=== PATIENT | male | born 1990 | race Caucasian/White ===

== ENCOUNTER 2023-05-29 06:53 | Day surgery (SDC) | payer OTHER ==
[2023-05-29] MEDS: LACTATED RINGERS 1,000 ML IV SCH (07:39)
[2023-05-29 07:55] VITALS: RESP 16; TEMP 98.1
[2023-05-29] MEDS ORDERED: PROPOFOL 10 MG/ML 20 ML VIAL IV ONE (08:06)
--- NOTE | 2023-05-29 08:35 | P.PCN ---
Date of Procedure: 05/29/23 Procedure(s) Performed: Brief history: Patient is a pleasant 33-year-old white male scheduled for an elective upper endoscopy as well as colonoscopy as a part of evaluation of epigastric pain and change in bowel habits Procedure performed: Esophagogastroduodenoscopy with biopsy Colonoscopy Preoperative diagnosis: Chronic epigastric pain Change in bowel habits Anesthesia: MAC Procedure: After informed consent was obtained from the patient was brought into the endoscopy unit and IV sedation was administered by anesthesia under continuous monitoring. Initially upper endoscopy was done. The Olympus GF 160 video endoscope was inserted inserted into the mouth and esophagus intubated without any difficulty and was gradually advanced into the stomach and duodenum and carefully examined. The bulb and second part of the duodenum appeared normal.HIS were done from the duodenum to rule out celiac disease. The scope was then withdrawn into the stomach adequately insufflated with air and upon careful examination the antrum had mild patchy areas of erythema which was biopsied. Mucosa of the body, cardia and fundus appeared normal. The scope was then withdrawn into the esophagus. The GE junction was located at 40 cm to the incisors. Small hiatal hernia noted. It appeared regular with no erythema erosions or ulcerations. Rest of the esophagus appeared normal. Patient tolerated the procedure well. At this time the patient continued to remain sedation. Initial digital rectal examination was normal. Olympus CF 160 video colonoscope was then inserted into the rectum and gradually advanced to the cecum without any difficulty. Careful examination was performed as the scope was gradually being withdrawn. The prep was excellent. mid ileum was intubated and 20 cm visualized and appeared normal. The cecum, ascending colon, transverse colon, descending colon, sigmoid colon and rectum appeared normal. past with random biopsyrandom biopsy From ascending and descending colon to rule out microscopic/collagenous colitis. Retroflexion was performed in the rectum and no lesions were noted. Patient tolerated the procedure well. Impression: 1. Upper endoscopy revealed mild antral gastritis and small hiatal hernia 2. Colonoscopy was within normal limits with no evidence of colorectal neoplasia Recommendations: Findings of this examination were discussed with the patient as well ashis family. He was advised to follow up the biopsy results.follow-up in office in 2-3 weeks.
[2023-05-29 09:19] VITALS: BP 120/82; PULSE 61
== END 2023-05-29 09:18 | disposition home or self-care (01) ==
LOC: ORWHC2ENDO 06:53
PROVIDERS: ATTEND Internal Medicine Gastroenterology
DX: K29.50 Unspecified chronic gastritis without bleeding (principal); K44.9 Diaphragmatic hernia without obstruction or gangrene; K21.9 Gastro-esophageal reflux disease without esophagitis; R19.4 Change in bowel habit; G89.29 Other chronic pain; F32.A Depression, unspecified; F41.9 Anxiety disorder, unspecified; N30.90 Cystitis, unspecified without hematuria; Z79.899 Other long term (current) drug therapy
CPT/HCPCS: 88305; 45380; 43239; J2704

== ENCOUNTER 2024-08-07 02:47 | Inpatient (IN) | payer BC, MEDICAID ==
--- NOTE | 2024-08-07 03:49 | ED ---
Psych HPI - General Chief Complaint: Psychiatric Symptoms Stated Complaint: Anxiety, Mental health Time Seen by Provider: 08/07/24 03:40 Source: patient Mode of arrival: ambulatory - History of Present Illness Initial Comments: This patient is a 34-year-old man with history of OCD, who presents with complaints that he has had worsening of his symptoms. He is obsessing over thi ngs. This is led him to have difficulty relaxing and he has not slept now for 4 days. He is starting to have persistent suicidal ideation. MD Complaint: suicidal ideation, other -: month(s) Associated Psychiatric Symptoms: suicidal ideation, racing thoughts History of same: Yes Quality: getting worse Improves With: none Worsens With: none - Related Data Home Medications Medication Instructions Recorded Confirmed Cholecalciferol [Vitamin D3 (125 125 mcg PO DAILY 08/07/24 08/07/24 Mcg = 5000 Iu)] Melatonin 10 mg PO HS PRN 08/07/24 08/07/24 Multivitamins, Thera [Multivitamin 1 tab PO DAILY 08/07/24 08/07/24 (formulary)] [place]-3/Dha/Epa/Fish Oil [Fish Oil 1 cap PO DAILY 08/07/24 08/07/24 1,000 mg Softgel] Previous Rx's Medication Instructions Recorded Clotrimazole Cream [Lotrimin Cream] 1 applic TOPICAL BID each 08/12/24 QUEtiapine [SEROquel] 150 mg PO HS 30 Days #45 tab 08/12/24 Sennosides-Docusate Sodium 1 each PO BID 30 Days #60 tab 08/12/24 [Senokot-S] Terbinafine [LamISIL] 250 mg PO DAILY 7 Days #7 tab 08/12/24 bisacodyL [Dulcolax] 10 mg PO DAILY PRN 30 Days #30 tab 08/12/24 clomiPRAMINE [Anafranil] 25 mg PO DAILY 30 Days #30 cap 08/12/24 hydrOXYzine pamoate [Vistaril] 50 mg PO HS 30 Days #60 cap 08/12/24 polyethylene glycoL 3350 [Miralax] 17 gm PO DAILY 30 Days #30 packet 08/12/24 Allergies Allergy/AdvReac Type Severity Reaction Status Date / Time No Known Allergies Allergy Verified 08/07/24 11:51 Review of Systems ROS Statement: Those systems with pertinent positive or pertinent negative responses have been documented in the HPI. ROS Other: All systems not noted in ROS Statement are negative. Constitutional: Denies: fever, chills, weakness Eyes: Denies: vision change Respiratory: Denies: cough, dyspnea Cardiovascular: Denies: chest pain, palpitations Gastrointestinal: Reports: constipation. Denies: abdominal pain, nausea, vomiting, diarrhea Genitourinary: Denies: dysuria, hematuria Musculoskeletal: Denies: back pain Skin: Denies: rash Neurological: Denies: headache, weakness, numbness Psychiatric: Reports: suicidal thoughts Past Medical History Past Medical History: GERD/Reflux Additional Past Medical History / Comment(s): abdominal pain . discomfort p assing stools some blood ( bright red). feelings of heart racing when standing up, ramps up throughout the day. will see ice cream chef 05/27/22. back pain. hx back injuries. History of Any Multi-Drug Resistant Organisms: None Reported Additional Past Surgical History / Comment(s): cystitis. Past Anesthesia/Blood Transfusion Reactions: No Reported Reaction Past Psychological History: Anxiety, Depression Smoking Status: Never smoker - Past Family History Mother Family Medical History: Cancer Additional Family Medical History / Comment(s): breast cancer General Exam General appearance: alert, in no apparent distress Head exam: Present: atraumatic, normocephalic Eye exam: Present: normal appearance. Absent: scleral icterus, conjunctival injection Neck exam: Present: normal inspection Respiratory exam: Present: normal lung sounds bilaterally. Absent: respiratory distress, wheezes, rales, rhonchi, stridor, accessory muscle use Cardiovascular Exam: Present: regular rate, normal rhythm, normal heart sounds. Absent: systolic murmur, diastolic murmur, rubs, gallop GI/Abdominal exam: Present: soft. Absent: distended, tenderness, guarding Extremities exam: Present: normal inspection, normal capillary refill Back exam: Present: normal inspection Neurological exam: Present: alert Psychiatric exam: Present: suicidal ideation. Absent: agitated, anxious, flat affect, homicidal ideation Skin exam: Present: warm, dry, intact, normal color. Absent: rash Course Vital Signs 08/07/24 08/07/24 02:50 11:15 Temperature 98.1 F Pulse Rate 74 72 Respiratory 18 20 Rate Blood Pressure 141/83 134/87 O2 Sat by Pulse 100 97 Oximetry Medical Decision Making - Medical Decision Making Was pt. sent in by a medical professional or institution ([facility]JA Sullivan, HAND TACKER, urgent care, hospital, or penitentiary...) When possible be specific @ -[No] Did you speak to anyone other than the patient for history (EMS, parent, family, police, friend...)? What history was obtained from this source @ -[No] Did you review nursing and triage notes (agree or disagree)? Why? @ -[I reviewed and agree with nursing and triage notes] Were old charts reviewed (outside hosp., previous admission, EMS record, old EKG, old radiological studies, urgent care reports/EKG's, penitentiary records)? Report findings @ -[No old charts were reviewed] Differential Diagnosis (chest pain, altered mental status, abdominal pain women, abdominal pain men, vaginal bleeding, weakness, fever, dyspnea, syncope, headache, dizziness, GI bleed, back pain, seizure, CVA, palpatations, mental health, musculoskeletal)? @ -[Differential Mental Health Depression, anxiety, bipolar, psychosis, schizophrenia, borderline personality, situational depression, adjustment disorder, behavioral disorder, brain tumor, malingering, substance abuse, encephalopathy, medication reaction, dementia, hypothyroidism, degenerative neurologic disorder, lupus.... This is not meant to be all-inclusive list EKG interpreted by me (3pts min.). @ -[As above] X-rays interpreted by me (1pt min.). @ -[None done] CT interpreted by me (1pt min.). @ -[None done] U/S interpreted by me (1pt. min.). @ -[None done] What testing was considered but not performed or refused? (CT, X-rays, U/S, labs)? Why? @ -[None] What meds were considered but not given or refused? Why? @ -[None] Did you discuss the management of the patient with other professionals (professionals i.e. PUJA Sullivan, HAND TACKER, lab, RT, psych nurse, social work nurse, earth science technician, teacher, detention officer, manager of case management)? Give summary @ -[Case discussed with EPS personnel Was smoking cessation discussed for >3mins.? @ -[No] Was critical care preformed (if so, how long)? @ -[No] Were there social determinants of health that impacted care today? How? (Homelessness, low income, unemployed, alcoholism, drug addiction, transportation, low edu. Level, literacy, decrease access to med. care, [facility], rehab)? @ -[No] Was there de-escalation of care discussed even if they declined (Discuss DNR or withdrawal of care, Hospice)? DNR status @ -[No] What co-morbidities impacted this encounter? (DM, HTN, Smoking, COPD, CAD, Cancer, CVA, ARF, Chemo, Hep., AIDS, mental health diagnosis, sleep apnea, morbid obesity)? @ -[None] Was patient admitted / discharged? Hospital course, mention meds given and route, prescriptions, significant lab abnormalities, going to OR and other pertinent info. @ -[hospital course] Undiagnosed new problem with uncertain prognosis? @ -[No] Drug Therapy requiring intensive monitoring for toxicity (Heparin, Nitro, Insulin, Cardizem)? @ -[No] Were any procedures done? @ -[No] Diagnosis/symptom? @ -[Acute suicidal ideation Mood disorder Acute, or Chronic, or Acute on Chronic? @ -[Acute Uncomplicated (without systemic symptoms) or Complicated (systemic symptoms)? @ -[Uncomplicated Side effects of treatment? @ -[No] Exacerbation, Progression, or Severe Exacerbation? @ -[No] Poses a threat to life or bodily function? How? (Chest pain, [place], PR, pneumonia, PE, COPD, DKA, ARF, appy, cholecystitis, CVA, Diverticulitis, Homicidal, Suicidal, threat to staff... and all critical care pts) @ -[Yes there is risk of suicide attempt/completion All treatments are based on ideal body weight as in ED triage - Lab Data Result diagrams: 08/08/24 06:59 08/08/24 06:59 Lab Results 08/07/24 Range/Units 06:10 SARS-CoV-2 (PCR) Not Detected (Not Detectd) Disposition Clinical Impression: Mood disorder, Suicidal ideation Disposition: TRANSFER TO PSYCH HOSP/UNIT Condition: Stable Is patient prescribed a controlled substance at d/c from ED?: No
[2024-08-07] MEDS ORDERED: MAG HYDROX/AL HYDROX/SIMETH 355 ML BOTTLE PO PRN (09:25)
[2024-08-07] MEDS ORDERED: IBUPROFEN 600 MG TAB PO PRN (09:25)
[2024-08-07] MEDS ORDERED: ACETAMINOPHEN TAB 325 MG TAB PO PRN (09:25)
[2024-08-07] MEDS: NICOTINE 14MG/24HR PATCH TRANSDERM SCH (12:23)
--- NOTE | 2024-08-07 15:28 | P.MDCNMH ---
History of Present Illness H&P Date: 08/07/24 Chief Complaint: Medical management 34-year-old man with no past medical history presented for evaluation of mental health. Medicine was consulted for medical management. Patient's only complaint at this time is ringworm for which he was taking antifungals intermittently prior to arrival. Otherwise his review of systems is largely negative. Gen: in no apparent distress, resting comfortably in bed Eyes: PERRL, no scleral injection or icterus HENT: normocephalic, atraumatic, good hearing acuity, moist mucous membranes Neck: no tracheal deviation, full range of motion Resp: good air exchange, breathing comfortably with no accessory muscle use, no tactile fremitus CVS: good distal perfusion x 4, no pitting edema GI: soft, NTTP, ND, no hepatosplenomegaly : no suprapubic tenderness, no CVAT, renner catheter not present MSK: no clubbing, no cyanosis, no noted contractures of extremities Skin: no noted rashes, petechiae; temperature of skin is appropriate Neuro: moving all extremities without signs of weakness, CN II-XII intact Psych: cooperative, euthymic mood, insight and judgment intact Assessment/plan: Tinea corporis - Initiate clotrimazole cream 2 times a day for 2 weeks, patient may apply on his own Thank you for this consult. Please feel free to reach out with any questions or concerns Past Medical History Past Medical History: GERD/Reflux Additional Past Medical History / Comment(s): abdominal pain . discomfort passing stools some blood ( bright red). feelings of heart racing when standing up, ramps up throughout the day. will see anvilsmith 05/27/22. back pain. hx back injuries. History of Any Multi-Drug Resistant Organisms: None Reported Additional Past Surgical History / Comment(s): cystitis. Past Anesthesia/Blood Transfusion Reactions: No Reported Reaction Past Psychological History: Anxiety, Depression Additional Psychological History / Comment(s): no meds Smoking Status: Never smoker Past Alcohol Use History: None Reported Past Drug Use History: None Reported - Past Family History Mother Family Medical History: Cancer Additional Family Medical History / Comment(s): breast cancer Medications and Allergies Home Medications Medication Instructions Recorded Confirmed Type Cholecalciferol [Vitamin D3 (125 125 mcg PO DAILY 08/07/24 08/07/24 History Mcg = 5000 Iu)] Melatonin 10 mg PO HS PRN 08/07/24 08/07/24 History Multivitamins, Thera [Multivitamin 1 tab PO DAILY 08/07/24 08/07/24 History (formulary)] [place]-3/Dha/Epa/Fish Oil [Fish Oil 1 cap PO DAILY 08/07/24 08/07/24 History 1,000 mg Softgel] Allergies Allergy/AdvReac Type Severity Reaction Status Date / Time No Known Allergies Allergy Verified 08/07/24 11:51 Physical Exam Osteopathic Statement: *. No significant issues noted on an osteopathic structural exam other than those noted in the History and Physical/Consult. Vitals: Vital Signs Temp Pulse Pulse Resp BP BP Pulse Ox 08/07/24 11:45 98.2 F 71 18 117/68 97 08/07/24 11:15 72 20 134/87 97 08/07/24 02:50 98.1 F 74 18 141/83 100 Intake and Output 08/07/24 08/07/24 08/07/24 06:59 14:59 22:59 Other: Weight 81.647 kg 79.379 kg Cranial Nerve Examination - Cranial Nerves Cranial Nerve II- Optic: Intact Cranial Nerve III- Oculomotor: Intact Cranial Nerve IV- Trochlear: Intact Cranial Nerve V- Trigeminal: Intact Cranial Nerve - Abducens: Intact Cranial Nerve VII- Facial: Intact Cranial Nerve VIII- Auditory: Intact Cranial Nerve IX- Glossopharyngeal: Intact Cranial Nerve X- Vagus: Intact Cranial Nerve XI- Accessory: Intact Cranial Nerve XII- Hypoglossal: Intact
[2024-08-07] MEDS: OLANZapine ODT 5 MG TAB PO PRN (17:22)
[2024-08-07] MEDS: CLOTRIMAZOLE 1% CREAM 30 GM TUBE TOPICAL SCH (22:43)
[2024-08-08] MEDS ORDERED: MELATONIN 5 MG TABLET PO PRN (07:13)
[2024-08-08 07:22] LABS: Basophils # (A) 0.06 10*3/uL (0.00-0.10); Eosinophils % (A) 1.6 %; HCT 46.9 % (39.6-50.0); HGB 15.8 g/dL (13.0-17.0); Lymphocytes % (A) 24.1 %; MCHC 33.7 g/dL (32.0-37.0); MCV 97.9 fL (80.0-97.0); Mean Platelet Volume 11.4 fL (9.5-12.2); Monocytes # (A) 0.86 10*3/uL (0.20-1.00); Monocytes % (A) 13.8 %; Neutrophils # (A) 3.69 10*3/uL (1.80-7.70); Neutrophils % (A) 59.3 %; Platelet Count 275 10*3/uL (140-440); RBC 4.79 10*6/uL (4.40-5.60); RDW 13.6 % (11.5-14.5); WBC 6.22 10*3/uL (4.50-10.00)
[2024-08-08 07:36] LABS: ALT 16 U/L (4-49); AST 22 U/L (17-59); African American GFR (CKD) >90 (>60 ml/min/1.73 sqM); Albumin 4.3 g/dL (3.5-5.0); Alkaline Phosphatase 62 U/L (38-126); Anion Gap 9 mmol/L; Bilirubin, Delta 0.2 mg/dL (0.0-0.2); Bilirubin,Unconjugated 1.2 mg/dL (0.0-1.1); Blood Urea Nitrogen 11 mg/dL (9-20); Calcium 9.5 mg/dL (8.4-10.2); Carbon Dioxide 27 mmol/L (22-30); Chloride 103 mmol/L (98-107); Glucose 90 mg/dL (74-99); Non-African American GFR(CKD) 89 (>60 ml/min/1.73 sqM); Potassium 4.6 mmol/L (3.5-5.1); Sodium 139 mmol/L (137-145); Total Bilirubin 1.4 mg/dL (0.2-1.3); Total Protein 7.5 g/dL (6.3-8.2)
--- NOTE | 2024-08-08 08:12 | P.HP ---
Psychiatric H&P - . H&P Date: 08/08/24 History & Physical: Allergies Allergy/AdvReac Type Severity Reaction Status Date / Time No Known Allergies Allergy Verified 08/07/24 11:51 Vital Signs Temp 98.2 F 08/07/24 11:45 Pulse 71 08/07/24 11:45 Resp 18 08/07/24 11:45 BP 117/68 08/07/24 11:45 Pulse Ox 97 08/07/24 11:45 FiO2 Intake & Output 08/07/24 08/08/24 08/08/24 18:59 06:59 18:59 Weight 79.379 kg Laboratory Last Values WBC 6.22 10*3/uL (4.50-10.00) 08/08/24 06:59 RBC 4.79 10*6/uL (4.40-5.60) 08/08/24 06:59 Hgb 15.8 g/dL (13.0-17.0) 08/08/24 06:59 Hct 46.9 % (39.6-50.0) 08/08/24 06:59 MCV 97.9 fL (80.0-97.0) H 08/08/24 06:59 MCH 33.0 pg (27.0-32.0) H 08/08/24 06:59 MCHC 33.7 g/dL (32.0-37.0) 08/08/24 06:59 Plt Count 275 10*3/uL (140-440) 08/08/24 06:59 MPV 11.4 fL (9.5-12.2) 08/08/24 06:59 Immature Gran % (Auto) 0.2 % 08/08/24 06:59 Neutrophils % 59.3 % 08/08/24 06:59 Lymphocytes % 24.1 % 08/08/24 06:59 Monocytes % 13.8 % 08/08/24 06:59 Eosinophils % 1.6 % 08/08/24 06:59 Basophils % 1.0 % 08/08/24 06:59 Immature Gran # 0.01 10*3/uL (0.00-0.04) 08/08/24 06:59 Neutrophils # 3.69 10*3/uL (1.80-7.70) 08/08/24 06:59 Lymphocytes # 1.50 10*3/uL (0.90-5.00) 08/08/24 06:59 Monocytes # 0.86 10*3/uL (0.20-1.00) 08/08/24 06:59 Eosinophils # 0.10 10*3/uL (0.04-0.35) 08/08/24 06:59 Basophils # 0.06 10*3/uL (0.00-0.10) 08/08/24 06:59 Sodium 139 mmol/L (137-145) 08/08/24 06:59 Potassium 4.6 mmol/L (3.5-5.1) 08/08/24 06:59 Chloride 103 mmol/L (98-107) 08/08/24 06:59 Carbon Dioxide 27 mmol/L (22-30) 08/08/24 06:59 Anion Gap 9 mmol/L 08/08/24 06:59 BUN 11 mg/dL (9-20) 08/08/24 06:59 Creatinine 1.08 mg/dL (0.66-1.25) 08/08/24 06:59 Est GFR (CKD-EPI)AfAm >90 (>60 ml/min/1.73 sqM) 08/08/24 06:59 Est GFR (CKD-EPI)NonAf 89 (>60 ml/min/1.73 sqM) 08/08/24 06:59 Glucose 90 mg/dL (74-99) 08/08/24 06:59 Calcium 9.5 mg/dL (8.4-10.2) 08/08/24 06:59 Total Bilirubin 1.4 mg/dL (0.2-1.3) H 08/08/24 06:59 Conjugated Bilirubin 0.0 mg/dL (0.0-0.3) 08/08/24 06:59 Unconjugated Bilirubin 1.2 mg/dL (0.0-1.1) H 08/08/24 06:59 Delta Bilirubin 0.2 mg/dL (0.0-0.2) 08/08/24 06:59 AST 22 U/L (17-59) 08/08/24 06:59 ALT 16 U/L (4-49) 08/08/24 06:59 Alkaline Phosphatase 62 U/L (38-126) 08/08/24 06:59 Total Protein 7.5 g/dL (6.3-8.2) 08/08/24 06:59 Albumin 4.3 g/dL (3.5-5.0) 08/08/24 06:59 SARS-CoV-2 (PCR) Not Detected (Not Detectd) 08/07/24 06:10 08/08/24 07:55 IDENTIFYING DATA: Patient is a 34-year-old male currently single trading and crypto living with his mother and father HPI: The patient presented to the hospital with his father yesterday due to intense suicidal thoughts. The patient notes that he had not been sleeping for 4 days and decided to take a THC gummy from a friend. This intensified his suicidal thoughts that he was already having to the point that he was having urges but no plan. He reached out to his father who brought him to the hospital. Upon admission patient does have ringworm at this time. The patient has a past history of OCD, SAD, Depression and Anxiety. He notes that his OCD started when he was a kid with compulsions. He notes currently he has intrusive thoughts that make him feel like he has to understand anything he reads and he will ruminate on it for hours until he has a "Ah moment". He notes that this has caused other problems including fear of being judged where he socially isolates himself and basically hardly leaves the house. He notes that he chronically worries about things which overtake his life. He notes that his sleep is one of the things that he worries about since childhood he used to hold his breath in order to try to go to sleep. He currently rates his depression 6/10 and his anxiety 10/10 with 10 being worst. He notes on average she sleeps 4 hours at night. He notes that he has nervous anxious energy. He notes that he has problems with constipation and this affects his appetite. He notes that he struggles with concentration. He feels worthless but denies any bouts of crying. He notes feelings of guilt and shame. He denies any current suicidal thoughts or homicidal thoughts. He denies any access to firearms. Collateral: The patient gave me permission to speak to his father Jaswant [phone] however there was no answer when trying to reach out to him. Psychiatric review of systems: Bipolar-negative PTSD-negative Psychosis-negative Stressors: Social isolation, Lack of intimate relationship PAST PSYCHIATRIC HISTORY: The patient has a history of OCD, Social anxiety disorder, Depression, Anxiety. The patient currently is not on any psychotropic medications. The past the patient has been on Celexa, Zoloft, Luvox, BuSpar, Cymbalta, Seroquel, Lamictal, Adderall, and Xanax. The patient notes that this is his second hospitalization. The patient currently does not follow-up with an outpatient provider but in the past has seen a therapist. The patient denies any prior history of suicide attempts. The patient denies any physical, verbal or sexual abuse growing up. He notes a history of being in penitentiary for 2 weeks for shoplifting and larceny. He denies any history of violence. PMH: Chronic back pain Ringworm ALLERGIES: No known drug allergies CHEMICAL DEPENDENCY HISTORY: Caffeine-excessive Alcohol-occasionally 1-2 drinks per month Cannabis-rarely Stimulants-history of overuse FAMILY PSYCHIATRIC/SUBSTANCE USE HISTORY: The patient notes that his maternal aunt suffers from anxiety SOCIAL HISTORY: The patient was born and raised in [place] and notes that his childhood was "okay". 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 He is currently trading [employer]. Notes that he was in a long-term relationship for over 10 years. He currently lives with his mother and father. He denies any orthodoxy or spiritual beliefs. He denies any service. MENTAL STATUS EXAM: General Appearance: Patient appears to be his stated age is alert, directable, and attempts to cooperate. Patient appears to have good hygiene and grooming. Behavior: Patient is seated without any agitated behavior. Patient presented somewhat restless at times but was cooperative and engaged in the interview Speech: Patient's speech is fluent and nonpressured. Mood/Affect: Patient reports their mood is extreme anxiety, affect is congruent and constricted. Suicidality/Homicidality: Patient denies having any homicidal ideation intent or plan. Denies any suicidal ideations intent or plan Perceptions: Patient denies any visual hallucinations and denies any auditory hallucinations Though content/process: There is no evidence of any delusional thought content and thought process is linear and goal-directed. Memory and concentration: AOX3, grossly intact for the purposes of this session. Can spell "WORLD" backwards Judgment and insight: Poor STRENGTHS/WEAKNESSES: strength is that patient is resilient. Weakness is that patient has poor judgment and is impulsive INTELLECT: Above average Diagnosis: Obsessive-compulsive disorder Major depressive disorder recurrent moderate Generalized anxiety disorder Social anxiety disorder Assessment: 34-year-old male presenting with intense suicidal thoughts after taking a THC gummy. The patient has a history of periodic suicidal thoughts. Additionally, patient has a history of OCD and crippling social anxiety disorder. The patient has restricted himself to the house for the last 2 years. The patient also has ALFONSO and major depressive disorder. His biggest fear is his sleep and states that this has been going on for years. Most recently he went 4 days with hardly any sleep because of worrying about sleep. The patient is open to medications and receiving treatment at this time. This is the least restrictive level of care at this time. PLAN: -Patient is admitted under voluntary status to [facility] for stabilization of psychiatric symptoms and safety. Patient has signed adult voluntary form and medication consent and is placed in patient's chart. -Medications : Start Anafranil 25 mg take 1 tablet by mouth once daily for OCD/anxiety/depression. The patient has been explained the risk and benefits of the medication. There will be a taper prior to discharge hopefully the patient will be on 75 mg. Seroquel 25 mg take 1 tablet by mouth at bedtime for insomnia -Ativan and Zyprexa PRN for agitation/aggression -Patient was informed of the risks, benefits and side effects of the medication and patient verbally consented to taking the medications. Patient signed med consent form and was placed in chart. -Internal Medicine consult to perform medical evaluation and physical. -NRT -not needed as patient does not smoke -SW on board for discharge planning. Encourage patient to participate in groups to work on coping skills.
[2024-08-08] MEDS: CHOLECALCIFEROL 125 MCG (5000 IU) TABLET PO SCH (08:33)
[2024-08-08] MEDS: MULTIVITAMINS, THERA 1 EACH TAB PO SCH (08:33)
[2024-08-08] MEDS ORDERED: NON FORMULARY DRUG (Omega-3/Dha/Epa/Fish Oil [Fish Oil 1,000 Mg Softgel] 1 EACH Capsule) PO SCH (09:00)
[2024-08-08 10:26] LABS: Chol/HDL Ratio 3.45 Ratio; LDL Cholesterol,Calculated 99.9 mg/dL (0.0-131.0); VLDL Calculation 16.56 mg/dL (5.00-40.00)
[2024-08-08] MEDS: MAGNESIUM HYDROXIDE 2,400 MG/30 ML CUP PO PRN (14:08)
[2024-08-08] MEDS: QUEtiapine 25 MG TAB PO SCH (20:03)
[2024-08-09] MEDS: SENNOSIDES-DOCUSATE SODIUM 1 EACH TAB PO SCH (09:10)
--- NOTE | 2024-08-09 09:15 | P.PN ---
Progress Note - Text Progress Note Date: 08/09/24 Interval history: Patient was seen today for psychiatric follow-up. Patient was wandering the h allways [place] to speak to real estate underwriter's office. States that he is doing a bit better compared to yesterday. Claims that he does suffer from OCD and claims that he has persistent ruminating thoughts. Claims that he feels that they have been improving since he has been taking the clomipramine. Claims that he slept about 5 hours last night, we spoke about increasing the Seroquel which he is okay with. Farm Supervisor gave him medication information for clomipramine today as requested. Will check EKG. Claims that he is going to some groups, was brought to shower, has been eating well. Denies any auditory or visual hallucinations denies any suicidal or homicidal ideations intent or plan MENTAL STATUS EXAM: General Appearance: Patient appears to be his stated age is alert, directable, and attempts to cooperate. Patient appears to have good hygiene and grooming. Behavior: Patient is seated without any agitated behavior. Less restless today. Mildly anxious Speech: Patient's speech is fluent and nonpressured. Mood/Affect: Patient reports their mood is anxiety, affect is congruent and constricted. Improving mildly Suicidality/Homicidality: Patient denies having any homicidal ideation intent or plan. Denies any suicidal ideations intent or plan Perceptions: Patient denies any visual hallucinations and denies any auditory hallucinations Though content/process: There is no evidence of any delusional thought content and thought process is linear and goal-directed. Memory and concentration: AOX3, grossly intact for the purposes of this session Judgment and insight: improving mildly Diagnosis: Major depressive disorder Obsessive-compulsive disorder Generalized anxiety disorder Social anxiety disorder PLAN: -Patient is admitted under voluntary status to [facility]HU for stabilization of psy chiatric symptoms and safety. Patient has signed adult voluntary form and medication consent and is placed in patient's chart. -Medications : Start Anafranil 25 mg take 1 tablet by mouth once daily for OCD/anxiety/depression. consider increasing as tolerated/needed. check ekg today. increase Seroquel 50 mg at bedtime for insomnia/anxiety/ruminating thoughts. -Ativan and Zyprexa PRN for agitation/aggression -NRT -not needed as patient does not smoke -SW on board for discharge planning. Encourage patient to participate in groups to work on coping skills. likely discharge in 2-3 days if patient is improving psychiatrically
[2024-08-09] MEDS: polyethylene glycoL 3350 17 GM POWD.PACK PO SCH (14:41)
[2024-08-09] MEDS: QUEtiapine 50 MG TAB PO SCH (20:03)
[2024-08-09 20:31] LABS: Appearance,Urine Clear (Clear); Bilirubin,Urine Negative (Negative); Blood,Urine Negative (Negative); Color,Urine Colorless; Glucose,Urine (UA) Negative (Negative); Ketones,Urine Trace (Negative); Leukocyte Esterase,Urine Negative (Negative); Nitrite,Urine Negative (Negative); PH, Urine 5.5 (5.0-8.0); Protein,Urine Negative (Negative); Specific Gravity,Urine 1.012 (1.001-1.035); Urobilinogen,Urine <2.0 mg/dL (<2.0)
[2024-08-10 02:03] LABS: Urine Alcohol Negative (Negative); Urine Barbiturate Negative (Negative); Urine Cocaine Negative (Negative); Urine Methadone Negative (Negative); Urine Opiates Negative (Negative); Urine Phencyclidine Negative (Negative)
--- NOTE | 2024-08-10 10:22 | P.PN ---
Progress Note - Text Progress Note Date: 08/10/24 Interval history: Patient was seen today for psychiatric follow-up. Patient was wandering the h allways earlier today. He has been going to groups. He claims that he is doing a bit better today overall. Claims that he has "ringworm" lesions over his skin and showed sql report writer several circular and red well-circumscribed rash over his torso. Claims that he feels that his OCD symptoms have been improving since yesterday, claims that he did not sleep well last night about 2 or 3 hours. We spoke about adding Vistaril as well as a Seroquel dose as needed for sleep. Reviewed his EKG. He states that he has been eating well. Denies any auditory or visual hallucinations denies any suicidal or homicidal ideations intent or plan MENTAL STATUS EXAM: General Appearance: Patient appears to be his stated age is alert, directable, and attempts to cooperate. Patient appears to have good hygiene and grooming. Behavior: Patient is seated without any agitated behavior. Less restless today. Mildly anxious, improving mildly Speech: Patient's speech is fluent and nonpressured. Mood/Affect: Patient reports their mood is anxiety, affect is congruent and constricted. Improving mildly Suicidality/Homicidality: Patient denies having any homicidal ideation intent or plan. Denies any suicidal ideations intent or plan Perceptions: Patient denies any visual hallucinations and denies any auditory hallucinations Though content/process: There is no evidence of any delusional thought content and thought process is linear and goal-directed. Memory and concentration: AOX3, grossly intact for the purposes of this session Judgment and insight: improving mildly Diagnosis: Major depressive disorder Obsessive-compulsive disorder Generalized anxiety disorder Social anxiety disorder PLAN: -Patient is admitted under voluntary status to [facility]HU for stabilization of psychiatric symptoms and safety. Patient has signed adult voluntary form and medication consent and is placed in patient's chart. -Medications : Start Anafranil 25 mg take 1 tablet by mouth once daily for OCD/anxiety/depression. consider increasing as tolerated/needed. Seroquel 50 mg at bedtime for insomnia/anxiety/ruminating thoughts. added 50 mg qhs prn dose for insomnia. added vistaril 50 mg qhs for anxiety/sleep. -will contact medical for recommendations on rash. -Ativan and Zyprexa PRN for agitation/aggression -NRT -not needed as patient does not smoke -SW on board for discharge planning. Encourage patient to participate in groups to work on coping skills. likely discharge thursday if patient is improving psychiatrically
[2024-08-10] MEDS ORDERED: TERBINAFINE 250 MG TAB PO SCH (13:45)
[2024-08-10] MEDS: TERBINAFINE 250 MG TAB PO SCH (13:51)
[2024-08-10] MEDS: NA PHOS,M-B/NA PHOS,DI-BA 133 ML ENEMA RECTAL ONE (15:26)
[2024-08-10] MEDS: hydrOXYzine pamoate 25 MG CAP PO SCH (20:54)
[2024-08-11] MEDS: QUEtiapine 50 MG TAB PO PRN (01:43)
--- NOTE | 2024-08-11 10:52 | P.PN ---
Progress Note - Text Progress Note Date: 08/11/24 Interval history: Patient was seen today for psychiatric follow-up. Patient was wandering the h allways earlier today. Patient did not go to group this morning. Claims that he is doing a bit better today, claims that his anxiety and mood have been improving. States that he believes the Seroquel has been helping he needs to take an extra dose at nighttime last night. Claims that he was able to sleep throughout the whole night after taking the last dose he was agreeable to go on the 100 mg dose tonight. States that he is still having difficulties with his bowel movements, I was agreeable to try bisacodyl today. Claims that he is eating well. Denies any auditory or visual hallucinations denies any suicidal or homicidal ideations intent or plan MENTAL STATUS EXAM: General Appearance: Patient appears to be his stated age is alert, directable, and attempts to cooperate. Patient appears to have good hygiene and grooming. Behavior: Patient is seated without any agitated behavior, improving mildly yeah I have not seen him yet and yet Uri. So far for discharge, I do not Cefol not yet Speech: Patient's speech is fluent and nonpressured. Mood/Affect: Patient reports their mood is anxiety, affect is congruent and constricted. Improving mildly Suicidality/Homicidality: Patient denies having any homicidal ideation intent or plan. Denies any suicidal ideations intent or plan Perceptions: Patient denies any visual hallucinations and denies any auditory hallucinations Though content/process: There is no evidence of any delusional thought content and thought process is linear and goal-directed. Memory and concentration: AOX3, grossly intact for the purposes of this session Judgment and insight: improving mildly Diagnosis: Major depressive disorder Obsessive-compulsive disorder Generalized anxiety disorder Social anxiety disorder PLAN: -Patient is admitted under voluntary status to [facility]HU for stabilization of psychiatric symptoms and safety. Patient has signed adult voluntary form and medication consent and is placed in patient's chart. -Medications : Start Anafranil 25 mg take 1 tablet by mouth once daily for OCD/anxiety/depre low increase Seroquel 100 mg at bedtime for insomnia/anxiety/ruminating thoughts. continue with 50 mg qhs prn dose for insomnia. vistaril 50 mg qhs for anxiety/sleep. -Ativan and Zyprexa PRN for agitation/aggression -NRT -not needed as patient does not smoke -SW on board for discharge planning. Encourage patient to participate in groups to work on coping skills. likely discharge tomorrow if patient is improving psychiatrically
[2024-08-11] MEDS: bisacodyL 5 MG TABLET.DR PO PRN (12:03)
[2024-08-11 14:41] LABS: HIV 2 AB Non-Reactive (Non-Reactive); HIV AB P24 Non-Reactive (Non-Reactive); HIV P24 AG Non-Reactive (Non-Reactive)
[2024-08-11] MEDS: QUEtiapine 100 MG TAB PO SCH (20:41)
[2024-08-11 22:08] VITALS: RESP 16
[2024-08-12 10:01] VITALS: BP 122/76; PULSE 100; TEMP 97.6
--- NOTE | 2024-08-12 10:57 | P.DS ---
Providers Date of admission: 08/07/24 09:02 Expected date of discharge: 08/12/24 Attending physician: Berlin Sneed MD Consults: 08/07/24 09:25 Consult Physician Routine Consulting Provider: Jeffery Physician Consult Reason/Comments: H & p w/medical management Do you want consulting provider notified?: Yes Primary care physician: Stated None - Discharge Diagnosis(es) (1) Major depressive disorder Current Visit: Yes Status: Acute Priority: High (2) Obsessive compulsive disorder Current Visit: Yes Status: Acute Priority: High (3) Generalized anxiety disorder Current Visit: Yes Status: Acute Priority: Medium Hospital Course: Admission HPI: Admission note was completed by Dr Heller "patient is a 34-year-old male currently single trading and crypto living with his mother and father. The patient presented to the hospital with his father yesterday due to intense suic idal thoughts. The patient notes that he had not been sleeping for 4 days and decided to take a THC gummy from a friend. This intensified his suicidal thoughts that he was already having to the point that he was having urges but no plan. He reached out to his father who brought him to the hospital. Upon admission patient does have ringworm at this time. The patient has a past history of OCD, SAD, Depression and Anxiety. He notes that his OCD started when he was a kid with compulsions. He notes currently he has intrusive thoughts that make him feel like he has to understand anything he reads and he will ruminate on it for hours until he has a "Ah moment". He notes that this has caused other problems including fear of being judged where he socially isolates himself and basically hardly leaves the house. He notes that he chronically worries about things which overtake his life. He notes that his sleep is one of the things that he worries about since childhood he used to hold his breath in order to try to go to sleep. He currently rates his depression 6/10 and his anxiety 10/10 with 10 being worst. He notes on average she sleeps 4 hours at night. He notes that he has nervous anxious energy. He notes that he has problems with constipation and this affects his appetite. He notes that he struggles with concentration. He feels worthless but denies any bouts of crying. He notes feelings of guilt and shame. He denies any current suicidal thoughts or homicidal thoughts. He denies any access to firearms." Hospital course: Upon admission to the unit patient was directable and agreeable to commence treatment and signed adult voluntary form. Patient was initially anxious, depressed however with time and treatment patient got along well with other patients on the unit and followed unit protocol. Patient was compliant with the medications and denied any side effects throughout hospital course. Patient was started on Anafranil 25 mg daily for OCD symptoms/depression. Patient was also started on Seroquel increased to a dose of 150 mg nightly for insomnia/severe anxiety/mood adjunct. Vistaril 50 mg nightly for anxiety/sleep. Patient spoke of his stressors and engaged in therapy both group/activity therapy. Patient was also seen by medical team for history and physical exam. Throughout the course of the hospitalization patient gradually improved with regards to mood, anxiety, sleep and became more future oriented with improved insight and judgment. On the day of discharge patient denied any suicidal or homicidal ideations intent or plan denied any auditory or visual hallucinations. Patient endorsed wanting to live for their health and family. The patient denied any access to guns or weapons. Patient denied any paranoia and did not endorse any delusions. Patient does not have a significant history of substance abuse was counseled on abstaining from all substances including alcohol and marijuana. . Patient was also counseled on the medications and need for regular compliance and was encouraged to follow-up with their outpatient appointment for mental health and also for primary care. Prior to discharge a family meeting will be a rranged by web content & social media manager to answer any questions and ensure safety upon discharge incuding making sure that guns/weapons are either removed from the home or locked away. Mental status exam: General Appearance: Patient appears to be tall,thin, stated age is alert, pleasant, and cooperative. Patient is in no acute distress and has improved hygiene and grooming Behavior: Patient is calmly seated without any agitated behavior. Speech: Patient's speech is fluent and nonpressured. Mood/Affect: Patient reports their mood is "better", affect is congruent and euthymic. Suicidality/Homicidality: Patient denies having any suicidal or homicidal ideation intent or plan. Perceptions: Patient denies any auditory or visual hallucinations. Though content/process: There is no evidence of any delusional thought content and thought process is linear and goal-directed. More future oriented Memory and concentration: AOX3, grossly intact for the purposes of this session. Can spell "WORLD" backwards correctly. Judgment and insight: improved with guarded prognosis Impression: Major depressive disorder Obsessive compulsive disorder Generalized anxiety disorder Plan: -Continue with discharge today as patient has improved and stabilized psychiatrically and is not currently an imminent threat to themself and/or others. -Continue medications: Anafranil 25 mg daily for OCD symptoms/depression, Seroquel 150 mg nightly for insomnia/severe anxiety/mood adjunct, Vistaril 50 mg nightly for anxiety/sleep. -Patient was counseled on the need for medication compliance and appropriate follow-up at mental health and also primary care for medical issues. Patient verbalized understanding and agreed. -Social work to help coordinate patients discharge today. also to ensure safe home environment that guns/weapons are either removed from the home or locked away. Social work also to arrange for patients follow up appointments for psychiatric care along with follow up with primary care provider. -Patient counseled on abstaining from recreational drugs and marijuana and alcohol. Was informed/educated on the adverse effects on their physical and mental health. Patient verbally agreed and understood. -Patient was instructed to return to the hospital or seek immediate medical care if their psychiatric or medical symptoms do worsen or reoccur. Allergies Allergy/AdvReac Type Severity Reaction Status Date / Time No Known Allergies Allergy Verified 08/07/24 11:51 Laboratory Results WBC 6.22 10*3/uL (4.50-10.00) 08/08/24 06:59 RBC 4.79 10*6/uL (4.40-5.60) 08/08/24 06:59 Hgb 15.8 g/dL (13.0-17.0) 08/08/24 06:59 Hct 46.9 % (39.6-50.0) 08/08/24 06:59 MCV 97.9 fL (80.0-97.0) H 08/08/24 06:59 MCH 33.0 pg (27.0-32.0) H 08/08/24 06:59 MCHC 33.7 g/dL (32.0-37.0) 08/08/24 06:59 Plt Count 275 10*3/uL (140-440) 08/08/24 06:59 MPV 11.4 fL (9.5-12.2) 08/08/24 06:59 Immature Gran % (Auto) 0.2 % 08/08/24 06:59 Neutrophils % 59.3 % 08/08/24 06:59 Lymphocytes % 24.1 % 08/08/24 06:59 Monocytes % 13.8 % 08/08/24 06:59 Eosinophils % 1.6 % 08/08/24 06:59 Basophils % 1.0 % 08/08/24 06:59 Immature Gran # 0.01 10*3/uL (0.00-0.04) 08/08/24 06:59 Neutrophils # 3.69 10*3/uL (1.80-7.70) 08/08/24 06:59 Lymphocytes # 1.50 10*3/uL (0.90-5.00) 08/08/24 06:59 Monocytes # 0.86 10*3/uL (0.20-1.00) 08/08/24 06:59 Eosinophils # 0.10 10*3/uL (0.04-0.35) 08/08/24 06:59 Basophils # 0.06 10*3/uL (0.00-0.10) 08/08/24 06:59 Sodium 139 mmol/L (137-145) 08/08/24 06:59 Potassium 4.6 mmol/L (3.5-5.1) 08/08/24 06:59 Chloride 103 mmol/L (98-107) 08/08/24 06:59 Carbon Dioxide 27 mmol/L (22-30) 08/08/24 06:59 Anion Gap 9 mmol/L 08/08/24 06:59 BUN 11 mg/dL (9-20) 08/08/24 06:59 Creatinine 1.08 mg/dL (0.66-1.25) 08/08/24 06:59 Est GFR (CKD-EPI)AfAm >90 (>60 ml/min/1.73 sqM) 08/08/24 06:59 Est GFR (CKD-EPI)NonAf 89 (>60 ml/min/1.73 sqM) 08/08/24 06:59 Glucose 90 mg/dL (74-99) 08/08/24 06:[address] Glu mg/dL 97 mg/dL 08/08/24 06:59 Hemoglobin A1c 5.0 % (<=6.0) 08/08/24 06:59 Calcium 9.5 mg/dL (8.4-10.2) 08/08/24 06:59 Total Bilirubin 1.4 mg/dL (0.2-1.3) H 08/08/24 06:59 Conjugated Bilirubin 0.0 mg/dL (0.0-0.3) 08/08/24 06:59 Unconjugated Bilirubin 1.2 mg/dL (0.0-1.1) H 08/08/24 06:59 Delta Bilirubin 0.2 mg/dL (0.0-0.2) 08/08/24 06:59 AST 22 U/L (17-59) 08/08/24 06:59 ALT 16 U/L (4-49) 08/08/24 06:59 Alkaline Phosphatase 62 U/L (38-126) 08/08/24 06:59 Total Protein 7.5 g/dL (6.3-8.2) 08/08/24 06:59 Albumin 4.3 g/dL (3.5-5.0) 08/08/24 06:59 Triglycerides 82.80 mg/dL (0.00-149.00) 08/08/24 06:59 Cholesterol 164.00 mg/dL (0.00-200.00) 08/08/24 06:59 LDL Cholesterol, Calc 99.9 mg/dL (0.0-131.0) 08/08/24 06:59 VLDL Cholesterol, Calc 16.56 mg/dL (5.00-40.00) 08/08/24 06:59 HDL Cholesterol 47.50 mg/dL (40.00-60.00) 08/08/24 06:59 Cholesterol/HDL Ratio 3.45 Ratio 08/08/24 06:59 TSH 1.120 mIU/L (0.465-4.680) 08/08/24 06:59 Urine Color Colorless 08/09/24 20:15 Urine Appearance Clear (Clear) 08/09/24 20:15 Urine pH 5.5 (5.0-8.0) 08/09/24 20:15 Ur Specific [place] 1.012 (1.001-1.035) 08/09/24 20:15 Urine Protein Negative (Negative) 08/09/24 20:15 Urine Glucose (UA) Negative (Negative) 08/09/24 20:15 Urine Ketones Trace (Negative) H 08/09/24 20:15 Urine Blood Negative (Negative) 08/09/24 20:15 Urine Nitrite Negative (Negative) 08/09/24 20:15 Urine Bilirubin Negative (Negative) 08/09/24 20:15 Urine Urobilinogen <2.0 mg/dL (<2.0) 08/09/24 20:15 Ur Leukocyte Esterase Negative (Negative) 08/09/24 20:15 Urine Opiates Screen Negative (Negative) 08/09/24 20:15 Urine Methadone Screen Negative (Negative) 08/09/24 20:15 Ur Propoxyphene Screen Negative (Negative) 08/09/24 20:15 Urine Barbiturates Negative (Negative) 08/09/24 20:15 Ur Phencyclidine Scrn Negative (Negative) 08/09/24 20:15 Ur Amphetamine Screen Negative (Negative) 08/09/24 20:15 U Benzodiazepines Scrn Negative (Negative) 08/09/24 20:15 Urine Cocaine Screen Negative (Negative) 08/09/24 20:15 U Cannabinoids Screen Negative (Negative) 08/09/24 20:15 Urine Alcohol Negative (Negative) 08/09/24 20:15 U Creatinine Drug Scrn 131.0 mg/dL (>=20.0) 08/09/24 20:15 HIV-1 Antibody Non-Reactive (Non-Reactive) 08/11/24 08:03 HIV Ag/Ab Interpret 08/11/24 08:03 HIV p24 Antibody Non-Reactive (Non-Reactive) 08/11/24 08:03 HIV-2 Antibody Non-Reactive (Non-Reactive) 08/11/24 08:03 HIV P24 Antigen Non-Reactive (Non-Reactive) 08/11/24 08:03 SARS-CoV-2 (PCR) Not Detected (Not Detectd) 08/07/24 06:10 Vital Signs Temp 97.6 F 08/12/24 09:48 Pulse 100 08/12/24 09:48 Resp 16 08/12/24 09:48 BP 122/76 08/12/24 09:48 Pulse Ox 98 08/12/24 09:48 FiO2 Patient Condition at Discharge: Stable Plan - Discharge Summary Discharge Rx Participant: No New Discharge Prescriptions: New Terbinafine [LamISIL] 250 mg PO DAILY 7 Days #7 tab polyethylene glycoL 3350 [Miralax] 17 gm PO DAILY 30 Days #30 packet QUEtiapine [SEROquel] 150 mg PO HS 30 Days #45 tab hydrOXYzine pamoate [Vistaril] 50 mg PO HS 30 Days #60 cap clomiPRAMINE [Anafranil] 25 mg PO DAILY 30 Days #30 cap bisacodyL [Dulcolax] 10 mg PO DAILY PRN 30 Days #30 tab PRN Reason: Constipation Clotrimazole Cream [Lotrimin Cream] 1 applic TOPICAL BID each Sennosides-Docusate Sodium [Senokot-S] 1 each PO BID 30 Days #60 tab Continue [place]-3/Dha/Epa/Fish Oil [Fish Oil 1,000 mg Softgel] 1 cap PO DAILY Multivitamins, Thera [Multivitamin (formulary)] 1 tab PO DAILY Cholecalciferol [Vitamin D3 (125 Mcg = 5000 Iu)] 125 mcg PO DAILY Melatonin 10 mg PO HS PRN PRN Reason: sleep Discharge Medication List Cholecalciferol [Vitamin D3 (125 Mcg = 5000 Iu)] 125 mcg PO DAILY 08/07/24 [History] Melatonin 10 mg PO HS PRN 08/07/24 [History] Multivitamins, Thera [Multivitamin (formulary)] 1 tab PO DAILY 08/07/24 [History] [place]-3/Dha/Epa/Fish Oil [Fish Oil 1,000 mg Softgel] 1 cap PO DAILY 08/07/24 [History] Clotrimazole Cream [Lotrimin Cream] 1 applic TOPICAL BID each 08/12/24 [Rx] QUEtiapine [SEROquel] 150 mg PO HS 30 Days #45 tab 08/12/24 [Rx] Sennosides-Docusate Sodium [Senokot-S] 1 each PO BID 30 Days #60 tab 08/12/24 [Rx] Terbinafine [LamISIL] 250 mg PO DAILY 7 Days #7 tab 08/12/24 [Rx] bisacodyL [Dulcolax] 10 mg PO DAILY PRN 30 Days #30 tab 08/12/24 [Rx] clomiPRAMINE [Anafranil] 25 mg PO DAILY 30 Days #30 cap 08/12/24 [Rx] hydrOXYzine pamoate [Vistaril] 50 mg PO HS 30 Days #60 cap 08/12/24 [Rx] polyethylene glycoL 3350 [Miralax] 17 gm PO DAILY 30 Days #30 packet 08/12/24 [Rx] Follow up Appointment(s)/Referral(s): None,Stated [Primary Care Provider] - 1-2 days Activity/Diet/Wound Care/Special Instructions: Avoid the use of street drugs and alcohol. Take all medications as prescribed. When you are in need of refills on your medications, please contact your medical provider and/or outpatient psychiatrist/provider to have this done. Please go to your scheduled outpatient appointment for aftercare treatment. If symptoms return or become worse, call the crisis line at and/or go to the nearest emergency room for evaluation. National Suicide Hotline [facility] [facility] confidentiality statement: "The information contained in this communication, including attachments, is confidential, may be privileged, and is intended only for the use of the named recipient(s). Unauthorized use, disclosure, forwarding or copying is strictly prohibited and may be unlawful. If you have received this communication in error, please notify me IMMEDIATELY at the phone number or pager listed above. Discharge Disposition: HOME SELF-CARE
== END 2024-08-12 13:30 | disposition home or self-care (01) | DRG 881 ==
LOC: EC 02:47 → 3MHU 09:02
PROVIDERS: ADMIT Psychiatry & Neurology Psychiatry; ATTEND Psychiatry & Neurology Psychiatry
DX: F32.9 Major depressive disorder, single episode, unspecified (principal); R45.851 Suicidal ideations; B35.4 Tinea corporis; B35.9 Dermatophytosis, unspecified; M54.9 Dorsalgia, unspecified; F15.19 Other stimulant abuse with unspecified stimulant-induced disorder; F42.9 Obsessive-compulsive disorder, unspecified; G47.00 Insomnia, unspecified; Z60.4 Social exclusion and rejection; K21.9 Gastro-esophageal reflux disease without esophagitis; K59.00 Constipation, unspecified; F41.1 Generalized anxiety disorder; F40.11 Social phobia, generalized; Z11.52 Encounter for screening for COVID-19; Z79.899 Other long term (current) drug therapy
CPT/HCPCS: 80053; 80061; 80306; 81003; 82075; 82248; 83036; 84443; 85025; 87390; 87635; 93005; 99285